=== PATIENT | male | born 1985 | race Caucasian/White ===

== ENCOUNTER 2017-10-09 12:16 | Emergency (ER) | payer BC ==
[2017-10-09 12:26] VITALS: BP 153/81
--- NOTE | 2017-10-09 12:56 | UC ---
Throat Pain/Nasal Sid HPI - HPI Summary HPI Summary: 32 y/o presents with a 4 day history of body aches, fever, nausea, headache, and sore throat. 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 He did get his flu shot this year. He has been taking tylenol and ibuprofen for the discomfort. He denies SOB, chest pain, abdominal pain, vomiting, or diarrhea. - History of Current Complaint Chief Complaint: UCGeneralIllness Stated Complaint: SORE THROAT, FEVER Time Seen by Provider: 10/09/17 12:47 Hx Obtained From: Patient Onset/Duration: Gradual Onset Severity: Moderate Pain Intensity: 5 Pain Scale Used: 0-10 Numeric - Allergies/Home Medications Allergies/Adverse Reactions: Allergies Allergy/AdvReac Type Severity Reaction Status Date / Time No Known Allergies Allergy Verified 10/09/17 12:25 Home Medications: Home Medications Multiple Vitamins W/ Minerals [Multivitamin Adults] 1 tab PO DAILY 10/09/17 [ History Confirmed 10/09/17] PMH/Surg Hx/FS Hx/Imm Hx Previously Healthy: Yes - Surgical History Surgical History: Yes Surgery Procedure, Year, and Place: orif lt hand - Social History Occupation: Employed Full-time Lives: With Family Alcohol Use: Occasionally Substance Use Type: None Smoking Status (MU): Heavy Every Day Tobacco Smoker Type: Cigarettes Amount Used/How Often: 1/2 PPD Length of Time of Smoking/Using Tobacco: 12+ years Cessation Counseling: Counseled 3+Min - 10 Min - Immunization History Most Recent Influenza Vaccination: 2017 Review of Systems Constitutional: Fever, Chills, Other - Generalized body aches Skin: Negative Eyes: Negative ENT: Sore Throat Respiratory: Cough Cardiovascular: Negative Gastrointestinal: Nausea Neurological: Headache All Other Systems Reviewed And Are Negative: Yes Physical Exam Triage Information Reviewed: Yes Appearance: Well-Nourished, Ill-Appearing Vital Signs: Initial Vital Signs Temp 98.4 F 10/09/17 12:20 Pulse 108 10/09/17 12:20 Resp 20 10/09/17 12:20 BP 153/81 10/09/17 12:20 Pulse Ox 100 10/09/17 12:20 Vital Signs Reviewed: Yes Eyes: Positive: Conjunctiva Clear. Negative: Conjunctiva Inflamed, Discharge ENT: Positive: Hearing grossly normal, Pharynx normal, Pharyngeal erythema, TMs normal, Uvula midline. Negative: Nasal congestion, Nasal drainage, TM bulging, TM dull, TM red, Tonsillar swelling, Tonsillar exudate, Muffled voice, Hoarse voice, Sinus tenderness Neck: Positive: Supple, Nontender, No Lymphadenopathy Respiratory: Positive: Chest non-tender, Lungs clear, Normal breath sounds, No respiratory distress, No accessory muscle use Cardiovascular: Positive: RRR, No Murmur, Pulses Normal Abdomen Description: Positive: Nontender, No Organomegaly, Soft. Negative: Distended, Guarding Bowel Sounds: Positive: Present Neurological: Positive: Fatigued Psychological: Positive: Age Appropriate Behavior Skin: Negative: rashes Throat Pain/Nasal Course/Dx - Course Course Of Treatment: FLU A pos. Strep neg. Treat with Tamiflu. He does not work again for 4 days, he should be improved by that time and should be able to return to work. - Differential Dx/Diagnosis Differential Diagnosis/HQI/PQRI: Mononucleosis, Pharyngitis, Sinusitis, Tonsillitis, URI Provider Diagnoses: Influenza A Discharge - Discharge Plan Condition: Stable Disposition: HOME Prescriptions: Benzonatate CAP* [Tessalon 100 MG CAP*] 100 mg PO TID PRN #21 cap PRN Reason: Cough Guaifenesin-Codeine [G Tussin AC 100-10 mg/5Ml] 5 ml PO BEDTIME PRN #30 ml MDD 5mL PRN Reason: Cough Oseltamivir CAP* [Tamiflu CAP*] 75 mg PO BID #10 cap Patient Education Materials: Influenza (ED) Forms: *Work Release Referrals: Maggie Vasquez MD [Primary Care Provider] - Additional Instructions: If you develop a fever, shortness of breath, chest pain, new or worsening symptoms - please call your PCP or go to the ED. 1) Rest and drink plenty of fluids! 2) Tylenol/Ibuprofen as needed for any discomfort.
== END 2017-10-09 13:04 | disposition home or self-care (01) ==
LOC: UCEAST 12:16
DX: J09.X2 Influenza due to identified novel influenza A virus with other respiratory manifestations (principal); Z72.89 Other problems related to lifestyle; Z72.0 Tobacco use
CPT/HCPCS: 87502; 87651; 99212; G0463

== ENCOUNTER 2018-09-17 11:48 | Emergency (ER) | payer BC ==
[2018-09-17 12:13] VITALS: BP 142/90
--- NOTE | 2018-09-17 12:44 | UC ---
Throat Pain/Nasal Sid HPI - HPI Summary HPI Summary: 33 y/o male presents to the urgent care c/o Sore throat for 3 days. Pt reports pain w/ swallowing is 7/10. He took Tylenol PO 650mg last night to alleviate symptoms. 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 He has mild sinus congestion. Pt denies fever, cough, SOB, wheezing, chest pain, abdominal pain, JACOBO, N/v/d. Pt is a heavy everyday smoker. - History of Current Complaint Chief Complaint: UCRespiratory Stated Complaint: SORE THROAT Time Seen by Provider: 09/17/18 12:24 Hx Obtained From: Patient Onset/Duration: Gradual Onset, Lasting Days - 3 days, Still Present Severity: Moderate Pain Intensity: 7 - w/ swallowing Pain Scale Used: 0-10 Numeric Cough: None Associated Signs & Symptoms: Positive: Dysphagia. Negative: Wheezing, Hoarseness, Sinus Discomfort, Nasal Discharge, Fever, Rash - Epiglottits Risk Factors Epiglottis Risk Factors: Negative - Allergies/Home Medications Allergies/Adverse Reactions: Allergies Allergy/AdvReac Type Severity Reaction Status Date / Time environmental, cats Allergy Eyes Uncoded 09/17/18 12:13 Itchy/Swollen/Red/Watery Home Medications: Home Medications Acetaminophen [APAP] 325 mg PO Q6H PRN 09/17/18 [History Confirmed 09/17/18] Ascorbic Acid TAB* [Vitamin C TAB*] 500 mg PO DAILY 09/17/18 [History Confirmed 09/17/18] Multivitamins/Minerals TAB* [Theragran/minerals TAB*] 1 tab PO DAILY 09/17/18 [ History Confirmed 09/17/18] PMH/Surg Hx/FS Hx/Imm Hx Previously Healthy: Yes - Pt denies PMHX - Surgical History Surgical History: Yes Surgery Procedure, Year, and Place: orif lt hand - Family History Known Family History: Positive: None - Pt denies FMHX - Social History Occupation: Employed Full-time Lives: With Family Alcohol Use: Rare Substance Use Type: None Smoking Status (MU): Heavy Every Day Tobacco Smoker Type: Cigarettes Amount Used/How Often: 1 PPD Length of Time of Smoking/Using Tobacco: 12+ years - Immunization History Most Recent Influenza Vaccination: 2017 Review of Systems All Other Systems Reviewed And Are Negative: Yes Constitutional: Positive: Other - body aches. Negative: Fever, Chills Skin: Positive: Negative Eyes: Positive: Negative ENT: Positive: Sore Throat, Sinus Congestion. Negative: Nasal Discharge Respiratory: Positive: Negative. Negative: Cough Cardiovascular: Positive: Negative Gastrointestinal: Positive: Negative Genitourinary: Positive: Negative Motor: Positive: Negative Neurovascular: Positive: Negative Musculoskeletal: Positive: Negative Neurological: Positive: Negative Psychological: Positive: Negative Is Patient Immunocompromised?: No Physical Exam - Summary Physical Exam Summary: VITAL SIGNS: Reviewed. GENERAL: Patient is a well developed and nourished male who is sitting comfortable in the examining table. Patient is not in any acute respiratory distress. HEAD AND FACE: No signs of trauma. No ecchymosis, hematomas or skull depressions. No sinus tenderness. EYES: PERRLA, EOMI x 2, No injected conjunctiva, no nystagmus. No photophobia. EARS: Hearing grossly intact. Ear canals and tympanic membranes are within normal limits. MOUTH: Positive pharynx with erythema, no exudates, mild palatal petechiae. NO B/L tonsillar enlargement, no exudate. Uvula in midline. clear PND NECK: Supple, trachea is midline, Positive anterior cervical lymphadenopathy, no JVD, no carotid bruit, no c-spine tenderness, neck with full ROM. No meningeal signs, no Kernig's or brudzinskis signs. CHEST: Symmetric, no tenderness at palpation LUNGS: Clear to auscultation bilaterally. No wheezing or crackles. CVS: Regular rate and rhythm, S1 and S2 present, no murmurs or gallops appreciated. ABDOMEN: Soft, non-tender. No signs of distention. No rebound no guarding, and no masses palpated. Bowel sounds are normal. EXTREMITIES: FROM in all major joints, no edema, no cyanosis or clubbing. NEURO: Alert and oriented x 3. No acute neurological deficits. Speech is normal and follows commands. SKIN: Dry and warm Triage Information Reviewed: Yes Vital Signs: Initial Vital Signs Temp 99.3 F 09/17/18 12:07 Pulse 90 09/17/18 12:07 Resp 14 09/17/18 12:07 BP 142/90 09/17/18 12:07 Pulse Ox 95 09/17/18 12:07 Throat Pain/Nasal Course/Dx - Course Course Of Treatment: 33 y/o male presents to the urgent care c/o Sore throat for 3 days. Pt reports pain w/ swallowing is 7/10. He took Tylenol PO 650mg last night to alleviate symptoms. 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 He has mild sinus congestion. Pt denies fever, cough, SOB, wheezing, chest pain, abdominal pain, JACOBO, N/v/d. Pt is a heavy everyday smoker. Hx obtained. Pt w/ pharyngitis on examination. Rapid strep ordered, result: negative. Viral pharyngitis.Pt Rx ibuprofen PO to alleviates symptoms of pain and swelling. Advised on hand washing to avoid spreading. Pt advised to rest, eat well and avoid strenuous exercise. If symptoms do not improve or worsen advised to return to the urgent care or f/u with her PCP for further evaluation and treatment. Pt's BP is elevated today advised to decrease salt in diet, monitor BP and f/u with PCP for further management. D/C instrucitons explained. Pt understood and agreed w/ plan of care - Differential Dx/Diagnosis Differential Diagnosis/HQI/PQRI: Laryngitis, Mononucleosis, Pharyngitis, Tonsillitis, URI Provider Diagnosis: Pharyngitis, Elevated BP without diagnosis of hypertension Discharge - Sign-Out/Discharge Documenting (check all that apply): Patient Departure - d/c home All imaging exams completed and their final reports reviewed: No Studies - Discharge Plan Condition: Stable Disposition: HOME Patient Education Materials: Pharyngitis (ED), Low-Sodium Diet (ED) Referrals: Maggie Vasquez MD [Primary Care Provider] - 3 Days Additional Instructions: 1-Please take ibuprofen 600mg PO q6-8hrs prn as instructed after meals to alleviate pain and swelling. Increase fluid intake, eat well, rest and avoid strenuous exercise 2-If symptoms do not improve or worsen please return to the urgent care or f/u with your PCP in 3 days for further evaluation and treatment. 3-Your BP is elevated today. please decrease salt in your diet, monitor BP and if it continues to be elevated please f/u with your PCP for further management - Billing Disposition and Condition Condition: STABLE Disposition: Home
== END 2018-09-17 12:55 | disposition home or self-care (01) ==
LOC: UCEAST 11:48
DX: J02.9 Acute pharyngitis, unspecified (principal); R03.0 Elevated blood-pressure reading, without diagnosis of hypertension; F17.210 Nicotine dependence, cigarettes, uncomplicated
CPT/HCPCS: 87651; 99211; G0463

== ENCOUNTER 2018-10-12 16:16 | Emergency (ER) | payer BC ==
--- NOTE | 2018-10-12 16:27 | UC ---
Throat Pain/Nasal Sid HPI - History of Current Complaint Stated Complaint: THROAT PAIN Time Seen by Provider: 10/12/18 16:26 - Allergies/Home Medications Allergies/Adverse Reactions: Allergies Allergy/AdvReac Type Severity Reaction Status Date / Time environmental, cats Allergy Eyes Uncoded 09/17/18 12:13 Itchy/Swollen/Red/Watery PMH/Surg Hx/FS Hx/Imm Hx - Surgical History Surgical History: Yes Surgery Procedure, Year, and Place: orif lt hand - Family History Known Family History: Positive: None - Pt denies FMHX - Social History Alcohol Use: Rare Substance Use Type: None Smoking Status (MU): Heavy Every Day Tobacco Smoker Type: Cigarettes Amount Used/How Often: 1 PPD Length of Time of Smoking/Using Tobacco: 12+ years - Immunization History Most Recent Influenza Vaccination: 2017 Discharge - Discharge Plan Referrals: Maggie Vasquez MD [Primary Care Provider] -
[2018-10-12 17:12] VITALS: BP 137/81
--- NOTE | 2018-10-12 17:30 | UC ---
Throat Pain/Nasal Sid HPI - HPI Summary HPI Summary: The patient is a 33-year-old male with a 4-5 day history of sore throat and fever headache and myalgias. He has had some nasal congestion as well as cough. Generally healthy. He denies any chest pain or shortness of breath. He denies any nausea vomiting or diarrhea. - History of Current Complaint Chief Complaint: UCRespiratory Stated Complaint: THROAT PAIN Time Seen by Provider: 10/12/18 16:26 Hx Obtained From: Patient Onset/Duration: Gradual Onset Severity: Moderate Pain Intensity: 5 Pain Scale Used: 0-10 Numeric Cough: Productive Associated Signs & Symptoms: Positive: Fever - Epiglottits Risk Factors Epiglottis Risk Factors: Negative - Allergies/Home Medications Allergies/Adverse Reactions: Allergies Allergy/AdvReac Type Severity Reaction Status Date / Time environmental, cats Allergy Eyes Uncoded 10/12/18 17:12 Itchy/Swollen/Red/Watery Home Medications: Home Medications Echinacea 380 mg PO 10/12/18 [History] Ibuprofen 600 mg PO 10/12/18 [History] PMH/Surg Hx/FS Hx/Imm Hx Previously Healthy: Yes - Surgical History Surgical History: Yes Surgery Procedure, Year, and Place: orif lt hand - Family History Known Family History: Positive: Cardiac Disease - Social History Alcohol Use: Rare Substance Use Type: None Smoking Status (MU): Heavy Every Day Tobacco Smoker Type: Cigarettes Amount Used/How Often: 1 PPD Length of Time of Smoking/Using Tobacco: 12+ years - Immunization History Most Recent Influenza Vaccination: 2017 Review of Systems All Other Systems Reviewed And Are Negative: Yes Constitutional: Positive: Fever, Chills Skin: Positive: Negative Eyes: Positive: Negative ENT: Positive: Sore Throat Respiratory: Positive: Cough Cardiovascular: Positive: Negative Gastrointestinal: Positive: Negative Genitourinary: Positive: Negative Motor: Positive: Negative Neurovascular: Positive: Negative Musculoskeletal: Positive: Myalgia Neurological: Positive: Negative Psychological: Positive: Negative Physical Exam Triage Information Reviewed: Yes Appearance: Well-Appearing, No Pain Distress, Well-Nourished Vital Signs: Initial Vital Signs Temp 97.6 F 10/12/18 17:09 Pulse 76 10/12/18 17:09 Resp 18 10/12/18 17:09 BP 137/81 10/12/18 17:09 Pulse Ox 99 10/12/18 17:09 Vital Signs Reviewed: Yes Eyes: Positive: Conjunctiva Clear ENT: Positive: Pharyngeal erythema, TMs normal, Tonsillar swelling, Uvula midline. Negative: Nasal congestion, Nasal drainage, Tonsillar exudate, Trismus , Muffled voice, Hoarse voice, Sinus tenderness Dental Exam: Normal Neck: Positive: Supple, Nontender, Enlarged Nodes @ - ant cerv Respiratory: Positive: Lungs clear, Normal breath sounds, No respiratory distress, No accessory muscle use Cardiovascular: Positive: RRR, No Murmur Abdomen Description: Positive: No Organomegaly, Soft, Bruit. Negative: CVA Tenderness (R), CVA Tenderness (L) Bowel Sounds: Positive: Present Musculoskeletal: Positive: ROM Intact, No Edema Neurological: Positive: Alert Psychological Exam: Normal Skin Exam: Normal Diagnostics - Laboratory Diagnostic Studies Completed/Ordered: strep +. inlfuenza - Throat Pain/Nasal Course/Dx - Differential Dx/Diagnosis Provider Diagnosis: Strep pharyngitis Discharge - Sign-Out/Discharge Documenting (check all that apply): Patient Departure All imaging exams completed and their final reports reviewed: No Studies - Discharge Plan Condition: Stable Disposition: HOME Prescriptions: Amoxicillin PO (*) [Amoxicillin 875 MG (*)] 875 mg PO BID #20 tab Patient Education Materials: Strep Throat (ED) Forms: *Work Release Referrals: Maggie Vasquez MD [Medical Doctor] - - Billing Disposition and Condition Condition: STABLE Disposition: Home
== END 2018-10-12 17:40 | disposition home or self-care (01) ==
LOC: UCEAST 16:16
DX: J02.0 Streptococcal pharyngitis (principal); B95.0 Streptococcus, group A, as the cause of diseases classified elsewhere; F17.210 Nicotine dependence, cigarettes, uncomplicated
CPT/HCPCS: 87651; 99212; G0463

== ENCOUNTER 2022-02-05 21:34 | Inpatient (IN) ==
[2022-02-06] MEDS ORDERED: Al Hydrox/Mg Hydrox/Simet LIQ 30 ML UDC PO PRN (00:31)
[2022-02-06 08:37] LABS: Albumin 3.9 g/dL (3.2-5.2); Albumin/Globulin Ratio 1.6 (1-3); Calcium 9.5 mg/dL (8.6-10.3); Globulin 2.4 g/dL (2-4); HDL Cholesterol 39.3 mg/dL; Potassium 4.3 mmol/L (3.5-5.0); Total Bilirubin 0.7 mg/dL (0.2-1.0); Total Protein 6.3 g/dL (6.4-8.9)
[2022-02-06 08:48] LABS: TSH Ultra Thyroid Stim Horm 0.94 mcIU/mL (0.34-5.60)
[2022-02-06 08:52] LABS: ABS Eosinophils 0.2 10^3/ul (0-0.6); ABS Lymphocytes 2.1 10^3/ul (1.0-4.8); ABS Monocytes 0.7 10^3/ul (0-0.8); ABS Neutrophils 5.5 10^3/ul (1.5-7.7); Eosinophil % 1.8 %; Hematocrit 44 % (42-52); Hemoglobin 14.9 g/dL (14.0-18.0); Lymphocyte % 24.6 %; Mean Corpuscular HGB Conc 34 g/dL (31-36); Mean Corpuscular Hemoglobin 30 pg (27-31); Mean Corpuscular Volume 89 fL (80-94); Mean Platelet Volume 8.5 fL (7.4-10.4); Platelet Count 248 10^3/uL (150-450); Red Blood Count 4.95 10^6 /uL (4.18-5.48); Red Cell Distribution Width 13 % (10-15); White Blood Count 8.4 10^3/uL (3.5-10.8)
[2022-02-06] MEDS: Vitamin THERAPEUTIC TAB PO SCH (09:25)
[2022-02-06] MEDS: Nicotine PATCH 14 MG/24 HR PATCH TRANSDERM SCH (09:25)
[2022-02-06] MEDS: Nicotine GUM 2MG FRUIT FLAVOR PO PRN ×4 (12:20→20:47)
[2022-02-07] MEDS: Vitamin THERAPEUTIC TAB PO SCH (07:21)
[2022-02-07] MEDS: Nicotine GUM 2MG FRUIT FLAVOR PO PRN ×5 (07:22→20:09)
[2022-02-07] MEDS: Nicotine PATCH 14 MG/24 HR PATCH TRANSDERM SCH (19:33)
[2022-02-08] MEDS: Vitamin THERAPEUTIC TAB PO SCH (08:31)
[2022-02-08] MEDS: Nicotine GUM 2MG FRUIT FLAVOR PO PRN ×6 (08:34→20:43)
[2022-02-08] MEDS: Nicotine PATCH 14 MG/24 HR PATCH TRANSDERM SCH (08:38)
[2022-02-09] MEDS: Vitamin THERAPEUTIC TAB PO SCH (08:24)
[2022-02-09] MEDS: Nicotine GUM 2MG FRUIT FLAVOR PO PRN ×6 (08:26→19:51)
[2022-02-09] MEDS: Nicotine PATCH 14 MG/24 HR PATCH TRANSDERM SCH (08:28)
[2022-02-10 07:28] VITALS: BP 143/73
[2022-02-10] MEDS: Vitamin THERAPEUTIC TAB PO SCH (08:14)
[2022-02-10] MEDS: Nicotine PATCH 14 MG/24 HR PATCH TRANSDERM SCH (08:14)
[2022-02-10] MEDS: Nicotine GUM 2MG FRUIT FLAVOR PO PRN ×2 (08:16→10:34)
== END 2022-02-10 12:50 | disposition home or self-care (01) | DRG 751 ==
LOC: ED 21:34 → BSU 23:48
PROVIDERS: ADMIT Psychiatry & Neurology Psychiatry; ATTEND Student in an Organized Health Care Education/Training Program